=== PATIENT | female | born 1985 | race African-American/Black ===

== ENCOUNTER 2017-01-29 06:59 | Emergency (ER) | payer OTHER ==
[~2017-01-29] VITALS: Ht 162.6 cm; Wt 100.0 kg
[~2017-01-29 06:59] MED LIST: NEXP68IM IMPLANT
[2017-01-29 07:04] VITALS: BP 220/129; PULSE 70; RESP 16; TEMP 98.3; O2SAT 98
[2017-01-29 07:09] VITALS: BP 220/102
[2017-01-29 07:17] VITALS: BP 187/91
--- NOTE | 2017-01-29 07:28 | PD ---
HPI Chief Complaint: Oral / Dental Pain or Problem Time Seen by Provider: 07:17 Travel History International Travel<30 days: No Contact w/Intl Traveler<30days: No Traveled to known affect area: No History of Present Illness HPI 31yo F with no PMH presents to the ED with c/o 3 days of tooth pain. Pain is localized in tooth #2. States she has dentist appointment but not until a month from now because of her insurance. Tried over the counter medications and did not work. Denies any fever, chest pain, sob, n/v, abdominal pain, focal weakness or numbness or trauma. PFSH Past Medical History Medical History: Denies Significant Hx Cancer: No Cardiovascular Problems: No Diabetes: No Diminished Hearing: No Endocrine: No GERD: Yes Genitourinary: No Hepatitis: No Hiatal Hernia: No Hypertension: Yes Immune Disorder: No Musculoskeletal: No Neurologic: No Psychiatric: No Reproductive: Yes Respiratory: No Thyroid Disease: No Tetanus Vaccination: < 5 Years Influenza Vaccination: No ?: Unknown LMP: 01/23/17 : 3 Para: 1 Miscarriage: 1 Past Surgical History Surgical History: No Previous Surgery Body Medical Devices: CONTROL IMPLANT Pacemaker: No Social History Alcohol Use: Yes (RARELY) Tobacco Use: No Substance Use: No Allergies-Medications (Allergen,Severity, Reaction): Coded Allergies: No Known Allergies (Unverified , 01/29/17) Reported Meds & Prescriptions Reported Meds & Active Scripts Active No Active Prescriptions or Reported Medications Review of Systems Except as stated in HPI: all other systems reviewed are Neg Physical Exam Narrative GENERAL: 31yo F in moderate distress. SKIN: Focused skin assessment warm/dry. HEAD: Atraumatic. Normocephalic. EYES: Pupils equal and round. No scleral icterus. No injection or drainage. ENT: Mouth: +TTP tooth #2. No periapical fluctuance palpated. No malocclusion. NECK: Trachea midline. No JVD. CARDIOVASCULAR: Regular rate and rhythm. No murmur appreciated. RESPIRATORY: No accessory muscle use. Clear to auscultation. Breath sounds equal bilaterally. GASTROINTESTINAL: Abdomen soft, non-tender, nondistended. MUSCULOSKELETAL: No obvious deformities. No clubbing. No cyanosis. No edema. NEUROLOGICAL: Awake and alert. No obvious cranial nerve deficits. Motor grossly within normal limits. Normal speech. PSYCHIATRIC: Appropriate mood and affect; insight and judgment normal. Data Data Last Documented VS Vital Signs Date Time Temp Pulse Resp B/P Pulse Ox O2 Delivery O2 Flow Rate FiO2 01/29/17 08:10 62 15 170/87 99 Room Air 01/29/17 07:04 98.3 Orders Oxycodone-Acetamin 10-325 Mg (Percocet 1 (01/29/17 07:30) Bupivacaine Pf 0.25% Inj (Marcaine Pf 0. (01/29/17 07:30) MDM Medical Decision Making Medical Screen Exam Complete: Yes Emergency Medical Condition: Yes Differential Diagnosis Tooth decay vs. dental pain Narrative Course 31yo F with c/o pain in tooth #2 for 3 days. No facial erythema or swelling. No fever. Pt is able to eat and drink. Pt has appointment with dentist later this month. Pt given percocet. I performed a supraperiosteal infiltration of tooth #2 with bupivacaine and pt state pain has resolved for now. BP improved to 170/87. Instructed pt to follow up with dentist earlier. Instructed pt to follow up with PMD regarding elevated BP. Elevated BP may be elevated due to pain. Procedures Procedure Narrative Dental block: Supraperiosteal infiltration of tooth # 2 was performed using 1cc of 0.25% bupivacaine. Pt tolerated procedure well. Diagnosis Primary Impression: Pain, dental Patient Instructions: General Instructions Departure Forms: Tests/Procedures Additional Instructions: Please follow up with your dentist in 1-2 days. Return to the ED if symptoms worsen. Med/Other Pt SpecificInfo: Prescription(s) given Scripts Ibuprofen 600 Mg Coh578 Mg PO Q8H PRN (PAIN) #20 TAB Ref 0 Prov:Roseanne Olivas 01/29/17 Disposition: 01 DISCHARGE HOME Condition: Stable Roseanne Olivas January 29, 2017 07:28
[2017-01-29] MEDS ORDERED: BUPIVACAINE HCL PF 0.25% 10 ML VIAL NERV BLOCK ONE (07:30)
[2017-01-29] MEDS ORDERED: oxyCODONE/ACETAMINOPHEN 10 MG/325 MG TAB PO ONE (07:30)
[2017-01-29 08:10] VITALS: BP_SYST 164; BP_SYST 170; BP_DIAS 84; BP_DIAS 87; PULSE 62; RESP 15; O2SAT 99
[2017-01-29] MEDS ORDERED: IBUP-232 PO (08:29)
== END 2017-01-29 08:48 | disposition home or self-care (01) ==
LOC: NEPE 06:59
DX: K08.89 Other specified disorders of teeth and supporting structures (principal); I10 Essential (primary) hypertension
CPT/HCPCS: 64400

== ENCOUNTER 2017-05-22 09:49 | Emergency (ER) | payer OTHER ==
[~2017-05-22] VITALS: Ht 162.6 cm; Wt 102.0 kg
[2017-05-22] VITALS (7 sets, daily range): BP systolic 125–151; BP diastolic 67–88; PULSE 54–105; RESP 17–24; O2SAT 97–99
[~2017-05-22 09:49] MED LIST changes: +IBUP-232 PO; -NEXP68IM IMPLANT
[2017-05-22] MEDS ORDERED: IOHEXOL 350 MG/ML 10 ML VIAL (for RAD DIAG) IVCONTRAST ONE (09:50)
[2017-05-22] MEDS: NITROGLYCERIN 0.4 MG SL 25 TABS/BTL SL SCH ×3 (10:13→10:53)
[2017-05-22] MEDS ORDERED: SODIUM CHLORIDE 0.9% FLUSH 10 ML FLUSH IVF PRN (10:15)
[2017-05-22] MEDS ORDERED: SODIUM CHLORID 0.9% 500 ML INJ 500 ML IV ONE (10:15)
[2017-05-22] MEDS ORDERED: ASPIRIN 81 MG CHEW TAB PO ONE (10:15)
[2017-05-22 10:22] LABS: AUTOMATED NEUTROPHIL # 3.9 TH/MM3 (1.8-7.7); BASOPHIL # 0.1 TH/MM3 (0-0.2); EOSINOPHIL # 0.1 TH/MM3 (0-0.4); HEMATOCRIT 42.7 % (35.0-46.0); HEMO FLAGS DIFF FINAL; LYMPH % 39.9 % (9.0-44.0); LYMPHOCYTE # 3.1 TH/MM3 (1.0-4.8); MEAN CORPUSCULAR HEMOGLOBIN 29.4 PG (27.0-34.0); MEAN CORPUSCULAR HGB CONC 33.4 % (32.0-36.0); MONO % 7.8 % (0.0-8.0); NEUT % 50.3 % (16.0-70.0); PLATELET COUNT 277 TH/MM3 (150-450); RED BLOOD COUNT 4.85 MIL/MM3 (4.00-5.30); RED CELL DISTRIBUTION WIDTH 13.4 % (11.6-17.2); WHITE BLOOD COUNT 7.8 TH/MM3 (4.0-11.0)
--- NOTE | 2017-05-22 10:43 | RADRPT ---
EXAM DATE/TIME: 05/22/2017 10:40 [facility] COMPARISON: No previous studies available for comparison. INDICATIONS : Mid sternal to left chest pains . MEDICAL HISTORY : None. SURGICAL HISTORY : None. ENCOUNTER: Initial ACUITY: 1 day PAIN SCORE: 7/10 LOCATION: Left chest FINDINGS: PA and lateral views of the chest demonstrate a normal-sized cardiac silhouette. There is no effusion , consolidation, or pneumothorax. The bones and soft tissues demonstrate no acute abnormality. Multip le EKG lines overlie the patient. CONCLUSION: No acute cardiopulmonary abnormality is identified. Curtis Interiano MD on May 22, 2017 at 10:40 Board Certified Radiologist. This report was verified electronically.
[2017-05-22 10:46] LABS: ALT (GPT) 26 U/L (10-53); ANION GAP 9 MEQ/L (5-15); AST (GOT) 242 U/L (15-37); BICARBONATE 23.3 MEQ/L (21.0-32.0); BLOOD UREA NITROGEN 8 MG/DL (7-18); CHLORIDE 107 MEQ/L (98-107); GLOMERULAR FILTRATION RATE 93 ML/MIN (>89); MAGNESIUM 1.9 MG/DL (1.5-2.5); POTASSIUM 3.5 MEQ/L (3.5-5.1); SODIUM (NA) 139 MEQ/L (136-145)
[2017-05-22 10:50] LABS: ALKALINE PHOSPHATASE 87 U/L (45-117); TOTAL BILIRUBIN ADULT 0.5 MG/DL (0.2-1.0)
--- NOTE | 2017-05-22 11:55 | RADRPT ---
EXAM DATE/TIME: 05/22/2017 00:00 [facility] COMPARISON: No previous studies available for comparison. INDICATIONS : Right upper quadrant pain. MEDICAL HISTORY : Hypertension. Gastroesophageal reflux disease. Methicillin-resistant Staphylococcus aureus. SURGICAL HISTORY : Cone biopsy. ENCOUNTER: Initial ACUITY: 2 days PAIN SCORE: 10/10 LOCATION: Right upper quadrant MEASUREMENTS: LIVER: 15.2 cm length COMMON DUCT: 2 mm RIGHT KIDNEY: 10.4 x 5.8 x 4.9 cm FINDINGS: LIVER: Normal echotexture without focal lesion or ductal dilatation. COMMON DUCT: No intraluminal mass or stone visualized. GALLBLADDER: Contains no stones, demonstrates no wall thickening or pericholecystic fluid. PANCREAS: The visualized portions are within normal limits. RIGHT KIDNEY: No evidence of hydronephrosis, stone, or mass. CONCLUSION: Negative exam. Saeid Rosales MD on May 22, 2017 at 11:51 Board Certified Radiologist. This report was verified electronically.
--- NOTE | 2017-05-22 12:59 | RADRPT ---
EXAM DATE/TIME: 05/22/2017 12:32 [facility] COMPARISON: No previous studies available for comparison. INDICATIONS : Left side chest pain that radiates to the left arm. IV CONTRAST: 50 cc Omnipaque 350 (iohexol) IV RADIATION DOSE: 19.11 CTDIvol (mGy) MEDICAL HISTORY : Hypertension. SURGICAL HISTORY : None. ENCOUNTER: Initial ACUITY: 1 day PAIN SCALE: 5/10 LOCATION: Left chest TECHNIQUE: Volumetric scanning of the chest was performed using a pulmonary embolism protocol MIP images were re constructed. Using automated exposure control and adjustment of the mA and/or kV according to patien t size, radiation dose was kept as low as reasonably achievable to obtain optimal diagnostic quality images. DICOM format image data is available electronically for review and comparison. Follow-up recommendations for detected pulmonary nodules are based at a minimum on nodule size and pa tient risk factors according to Fleischner Society Guidelines. FINDINGS: PULMONARY ARTERIES: No filling defects are seen in the pulmonary arteries through the segmental level. LUNGS: There is no consolidation or pneumothorax . No concerning pulmonary nodule is visualized. PLEURAE: There is no pleural thickening or pleural effusion. MEDIASTINUM: There is good visualization of the great vessels of the middle mediastinum. No evidence of mediastin al or hilar adenopathy/mass. MUSCULOSKELETAL: Within normal limits for patient age. MISCELLANEOUS: The visualized upper abdominal organs demonstrate no acute abnormality. CONCLUSION: 1. No PE is identified. 2. Additionally, no acute finding is identified to explain the chest pain. Curtis Interiano MD on May 22, 2017 at 12:54 Board Certified Radiologist. This report was verified electronically.
--- NOTE | 2017-05-22 13:47 | PD ---
HPI Chief Complaint: Chest Pain Time Seen by Provider: 10:03 Travel History International Travel<30 days: No Contact w/Intl Traveler<30days: No Traveled to known affect area: No History of Present Illness HPI Is a 31 year-old woman presents emergency department complaining of chest pain. 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 The pain is epigastrium and in her mid chest, pressure-like, states she's never had it before. It's been severe and persistent since onset. History Past Medical History Narrative Medical Hypertension LMP: 04/26 : 3 Para: 1 Social History Alcohol Use: No (DENIES) Tobacco Use: No Allergies-Medications (Allergen,Severity, Reaction): Coded Allergies: No Known Allergies (Unverified , 05/22/17) Reported Meds & Prescriptions Reported Meds & Active Scripts Active No Active Prescriptions or Reported Medications Review of Systems Except as stated in HPI: all other systems reviewed are Neg Physical Exam Narrative GENERAL: Well-appearing 31 year-old woman, no acute distress. SKIN: Focused skin assessment warm/dry. HEAD: Atraumatic. Normocephalic. EYES: Pupils equal and round. No scleral icterus. No injection or drainage. ENT: No nasal bleeding or discharge. Mucous membranes pink and moist. NECK: Trachea midline. No JVD. CARDIOVASCULAR: Regular rate and rhythm. No murmur appreciated. RESPIRATORY: No accessory muscle use. Clear to auscultation. Breath sounds equal bilaterally. GASTROINTESTINAL: Abdomen soft, non-tender, nondistended. Hepatic and splenic margins not palpable. MUSCULOSKELETAL: No obvious deformities. No clubbing. No cyanosis. No edema. NEUROLOGICAL: Awake and alert. No obvious cranial nerve deficits. Motor grossly within normal limits. Normal speech. PSYCHIATRIC: Appropriate mood and affect; insight and judgment normal. Data Data Last Documented VS Vital Signs Date Time Temp Pulse Resp B/P (MAP) Pulse Ox O2 Delivery O2 Flow Rate FiO2 05/22/17 13:16 54 17 151/84 (106) 97 Room Air Orders Orders Electrocardiogram (05/22/17 10:03) Complete Blood Count With Diff (05/22/17 10:03) Comprehensive Metabolic Panel (05/22/17 10:03) D-Dimer (05/22/17 10:03) Magnesium (Mg) (05/22/17 10:03) Troponin I (05/22/17 10:03) Lipase (05/22/17 10:03) Ecg Monitoring (05/22/17 10:03) Iv Access Insert/Monitor (05/22/17 10:03) Oximetry (05/22/17 10:03) Oxygen Administration (05/22/17 10:03) Aspirin Chew (Aspirin Chew) (05/22/17 10:15) Sodium Chloride 0.9% Flush (Ns Flush) (05/22/17 10:15) Nitroglycerin Sl (Nitrostat Sl) (05/22/17 10:15) Sodium Chlorid 0.9% 500 Ml Inj (Ns 500 M (05/22/17 10:15) Chest, Pa & Lat (05/22/17 10:03) Us Abdomen Gallbladder (05/22/17 ) Ct Pulmonary Angiogram (05/22/17 ) Iohexol 350 Inj (Omnipaque 350 Inj) (05/22/17 09:50) Labs Laboratory Tests Test 05/22/17 10:05 White Blood Count 7.8 TH/MM3 Red Blood Count 4.85 MIL/MM3 Hemoglobin 14.3 GM/DL Hematocrit 42.7 % Mean Corpuscular Volume 88.0 FL Mean Corpuscular Hemoglobin 29.4 PG Mean Corpuscular Hemoglobin Concent 33.4 % Red Cell Distribution Width 13.4 % Platelet Count 277 TH/MM3 Mean Platelet Volume 8.7 FL Neutrophils (%) (Auto) 50.3 % Lymphocytes (%) (Auto) 39.9 % Monocytes (%) (Auto) 7.8 % Eosinophils (%) (Auto) 1.0 % Basophils (%) (Auto) 1.0 % Neutrophils # (Auto) 3.9 TH/MM3 Lymphocytes # (Auto) 3.1 TH/MM3 Monocytes # (Auto) 0.6 TH/MM3 Eosinophils # (Auto) 0.1 TH/MM3 Basophils # (Auto) 0.1 TH/MM3 CBC Comment DIFF FINAL Differential Comment D-Dimer Quantitative (PE/DVT) 0.81 MG/L FEU Blood Urea Nitrogen 8 MG/DL Creatinine 0.86 MG/DL Random Glucose 88 MG/DL Total Protein 8.0 GM/DL Albumin 3.8 GM/DL Calcium Level 8.5 MG/DL Magnesium Level 1.9 MG/DL Alkaline Phosphatase 87 U/L Aspartate Amino Transf (AST/SGOT) 242 U/L Alanine Aminotransferase (ALT/SGPT) 26 U/L Total Bilirubin 0.5 MG/DL Sodium Level 139 MEQ/L Potassium Level 3.5 MEQ/L Chloride Level 107 MEQ/L Carbon Dioxide Level 23.3 MEQ/L Anion Gap 9 MEQ/L Estimat Glomerular Filtration Rate 93 ML/MIN Troponin I LESS THAN 0.02 NG/ML Lipase 98 U/L [facility] Medical Decision Making Medical Screen Exam Complete: Yes Emergency Medical Condition: Yes Interpretation(s) LABS: CBC is unremarkable. CMP unremarkable. Troponin negative Lipase negative ddimer 0.81 CT PE negative chest x-ray negative Differential Diagnosis Cholecystitis, gastritis, muscular skeletal pain, other Narrative Course Medical decision making 31 year-old woman with chest pain. Looks well. A little bit anxious when she first came in. States pain was severe. Suspect some, and anxiety. She did have a little bit of upper abdominal tenderness. AST is elevated suspect fatty liver. Ultrasounds negative. Recommend outpatient follow-up. Diagnosis Primary Impression: Chest pain Additional Instructions: Follow-up with your primary doctor in the next 2-4 days. Return to the emergency department for any new or worsening symptoms. Scripts No Active Prescriptions or Reported Meds Disposition: 01 DISCHARGE HOME Condition: Stable Yonis Avendaño MD May 22, 2017 13:47
--- NOTE | 2017-05-22 20:37 | EKG ---
Date Performed: 05/22/2017 Time Performed: 09:54:44 PTAGE: 31 years EKG: Sinus rhythm WITH SINUS ARRHYTHMIA NORMAL ECG PREVIOUS TRACING : 01/05/2012 08.25 compared to previous EKG no significant change DOCTOR: Carlos Blackwell Interpretating Date/Time 05/22/2017 20:37:06
== END 2017-05-22 14:18 | disposition home or self-care (01) ==
LOC: NEPE 09:49
DX: R07.9 Chest pain, unspecified (principal); I10 Essential (primary) hypertension
CPT/HCPCS: 71020; 71275; 76705; 80053; 83690; 83735; 84484; 85025; 85379; 93005; 96360; 99285; J7040; Q9967